=== PATIENT | male | born 1985 | race Two or more races ===

== ENCOUNTER 2018-12-27 09:40 | Outpatient (CLI) | payer OTHER | END 2018-12-27 09:47 | disposition home or self-care (01) | LOC: SONOGRAMA 09:40 | DX: E04.1 Nontoxic single thyroid nodule (principal) ==

== ENCOUNTER 2019-12-08 08:23 | Outpatient (CLI) | payer OTHER | END 2019-12-08 08:31 | disposition home or self-care (01) | LOC: SONOGRAMA 08:23 | PROVIDERS: ATTEND Pathology Anatomic Pathology & Clinical Pathology | DX: C73 Malignant neoplasm of thyroid gland (principal) ==